=== PATIENT | female | born 1990 | race Caucasian/White ===

== ENCOUNTER → 2017-05-19 | Outpatient (CLI) | payer OTHER ==
--- NOTE | 2017-05-19 12:12 | RADRPT ---
EXAM DATE/TIME: 05/19/2017 09:12 [place] COMPARISON: No previous studies available for comparison. INDICATIONS : Cholecystectomy 3 years ago. Abdominal pain and nausea for 1 week. DOSE: 4.1 mCi Tc99m Mebrofenin IV MEDICAL HISTORY : None SURGICAL HISTORY : Cholecystectomy. ENCOUNTER: Initial ACUITY: 1 week PAIN SCALE: 5/10 LOCATION: Right upper quadrant TECHNIQUE: Following the intravenous administration of radiotracer, dynamic sequential images were performed wit h continuous acquisition. FINDINGS: HEPATIC KINETICS: There is prompt uptake of radiotracer in the liver. No focal defects are seen. There is normal rate of washout from the hepatic parenchyma. BILIARY CLEARANCE: Activity is first seen in the extrahepatic biliary system at 10 minutes. There is normal excretion i nto the small bowel. GALLBLADDER: Patient is status post cholecystectomy. Common bile duct kinetics are normal and there is no evidenc e of biliary obstruction. BILIARY ENTRIC REFLUX: None observed. CONCLUSION: Normal exam postcholecystectomy. No biliary obstruction. Ahsan Araya MD on May 19, 2017 at 12:08 Board Certified Radiologist. This report was verified electronically.
== END ==
LOC: HRAD 08:30
PROVIDERS: ATTEND Family Medicine
DX: K31.84 Gastroparesis (principal); Z80.3 Family history of malignant neoplasm of breast
CPT/HCPCS: 78226; A9537